=== PATIENT | female | born 1985 | race Two or more races ===

== ENCOUNTER 2019-08-29 06:00 | Day surgery (SDC) | payer OTHER ==
[~2019-08-29] VITALS: Ht 160 cm; Wt 67.6 kg
[~2019-08-29 06:00] MED LIST: COZAAR50 MG PO
== END 2019-08-29 13:00 | disposition home or self-care (01) ==
LOC: CIR.AMB 06:00 → O/R 07:00 → SURH 07:00 → CIR.AMB 11:45 → O/R 11:45 → EDSTATUS 11:45 → O/R 12:00 → CIR.AMB 13:00
DX: N80.1 Endometriosis of ovary (principal)